=== PATIENT | female | born 1950 | race Caucasian/White ===

== ENCOUNTER 2022-03-14 14:57 | Outpatient (CLI) | payer MEDICARE, OTHER | END 2022-03-14 14:58 | disposition home or self-care (01) | LOC: CSHMRI 14:57 | PROVIDERS: ATTEND Family Medicine | DX: M54.16 Radiculopathy, lumbar region (principal); M47.816 Spondylosis without myelopathy or radiculopathy, lumbar region; M51.26 Other intervertebral disc displacement, lumbar region; R93.7 Abnormal findings on diagnostic imaging of other parts of musculoskeletal system | CPT/HCPCS: 72148 ==

== ENCOUNTER 2022-03-27 10:29 | Outpatient (CLI) | payer MEDICARE, OTHER ==
[~2022-03-27 10:29] MED LIST: Gadobenate Dimeglumine 529 MG/1 ML (20ML VIAL) ONE
== END 2022-03-27 10:30 | disposition home or self-care (01) ==
LOC: CSHMRI 10:29
PROVIDERS: ATTEND Family Medicine
DX: G96.198 Other disorders of meninges, not elsewhere classified (principal); R59.0 Localized enlarged lymph nodes
CPT/HCPCS: 72149; 82565; A9577